=== PATIENT | female | born 1960 | race Caucasian/White ===

== ENCOUNTER 2020-01-24 15:05 | Outpatient (CLI) | payer BC, SELFPAY ==
--- NOTE | ~2020-01-24 | CT_ITS ---
EXAMINATION: CT chest wo con DATE: 01/24/2020 15:41 INDICATION: Abnormal weight loss, cough TECHNIQUE: Computed tomography (CT) of the chest was performed without intravenous contrast. The dose -length product (DLP) was 172.90 mGy-cm. Automated exposure control and iterative reconstruction tech [employer] were employed. COMPARISON: 01/20/2016 FINDINGS: There is moderate emphysema. The lungs are free of acute opacities. There is no pleural eff usion or pneumothorax. No pathologically enlarged thoracic lymph nodes are identified. The heart size is normal. There is calcified coronary artery atherosclerosis. There is mild thoracic spondylosis. IMPRESSION: 1. No CT correlate for the patient's symptoms. 2. Moderate emphysema. Reviewed, dictated and finalized at location A.
== END 2020-01-24 15:06 | disposition home or self-care (01) ==
PROVIDERS: PCP Family Medicine; Visit Provider Family Medicine
DX: R63.4 Abnormal weight loss (principal); R05 Cough; K21.0 Gastro-esophageal reflux disease with esophagitis; J43.9 Emphysema, unspecified
CPT/HCPCS: 71250

== ENCOUNTER 2020-02-21 10:36 | Outpatient (CLI) | payer BC, SELFPAY ==
--- NOTE | ~2020-02-21 | CT_ITS ---
EXAMINATION: CT abdomen pelvis wo con DATE: 02/21/2020 11:18 INDICATION: Abnormal weight loss with reflux. Esophagitis. TECHNIQUE: Computed tomography (CT) of the abdomen and pelvis was performed without intravenous contr ast. The dose-length product was 326.98 mGy-cm. Automated exposure control and iterative reconstructi on technique were employed. COMPARISON: None. FINDINGS: There is right middle lobe and lingular atelectasis. Heart size normal. No significant pleu ral or pericardial effusion. There is a focal 1.8 cm hypodensity of the left hepatic lobe adjacent to the falciform ligament. The spleen, pancreas, adrenal glands and kidneys are unremarkable. Gallbladder not identified, likely mariaa gically absent. Bowel pattern is nonobstructive. No evidence for acute appendicitis or diverticulitis . No significant vascular abnormality. No lymphadenopathy. No abnormal pelvic masses or fluid collect ions. Status post hysterectomy. No acute osseous abnormality. No free air or free fluid. IMPRESSION: 1. Hypodense lesion of the left hepatic lobe adjacent to the falciform ligament measuring 1.8 cm. Thi s likely represents benign focal fatty infiltration, although cannot exclude a solid mass. Recommend follow-up evaluation with contrast-enhanced CT or MRI. Reviewed, dictated and finalized at location A. IMPRESSION: 1. Hypodense lesion of the left hepatic lobe adjacent to the falciform ligament measuring 1.8 cm. This likely represents benign focal fatty infiltration, alth ough cannot exclude a solid mass. Recommend follow-up evaluation with contrast- enhanced CT or MRI.
== END 2020-02-21 10:37 | disposition home or self-care (01) ==
PROVIDERS: PCP Family Medicine; Visit Provider Family Medicine
DX: R63.4 Abnormal weight loss (principal); K21.0 Gastro-esophageal reflux disease with esophagitis; K76.9 Liver disease, unspecified
CPT/HCPCS: 74176

== ENCOUNTER 2020-02-27 08:21 | Outpatient (CLI) | payer BC, SELFPAY ==
--- NOTE | ~2020-02-27 | CT_ITS ---
EXAMINATION: CT abdomen w con DATE: 02/27/2020 09:17 INDICATION: Liver lesion TECHNIQUE: Computed tomography (CT) of the abdomen and pelvis was performed . with 100 mL Omnipaque-3 50 intravenous contrast. Automated exposure control and iterative reconstruction technique were emplo yed. The dose-length product was 264.57 mGy-cm. COMPARISON: 02/21/2020 FINDINGS: Minimal atelectasis at the right lung base. Heart size is normal. No pericardial or pleural effusion. Again seen is a lesion in segment IVb of the liver along side the falciform which measures 3.2 cm cr aniocaudally and 1.8 x 1.6 cm in maximal transaxial dimensions. The lesion which demonstrated near fl uid attenuation with Hounsfield units of 13 on the prior noncontrast study increases to 64 HU on the postcontrast study demonstrate a similar degree of enhancement as the surrounding renal parenchyma wh ich increases from 54 HU to 116 HU. The location, degree of low attenuation on noncontrast imaging an d similar degree of enhancement to the surrounding liver would also favor focal hepatic steatosis. Li julio cesar is otherwise normal. Gallbladder is not visualized and likely surgically absent. Spleen, pancreas , bilateral adrenal glands and kidneys are normal. Visualized portion of the bowels are unremarkable. No pathologically enlarged abdominal lymphadenopathy. There is calcified atherosclerosis of the aort a and many of the other arteries. Mild lumbar spondylosis. IMPRESSION: 1. 3.2 x 1.8 x 1.6 cm hypodense lesion in segment IVb of the liver with location and imaging pattern most consistent with focal hepatic steatosis. Reviewed, dictated and finalized at location A. IMPRESSION: 1. 3.2 x 1.8 x 1.6 cm hypodense lesion in segment IVb of the liver with locatio n and imaging pattern most consistent with focal hepatic steatosis.
[2020-02-27 09:15] LABS: Estimated Glomerular Filt Rate > 60
== END 2020-02-27 08:22 | disposition home or self-care (01) ==
LOC: ANHIMG 08:31
PROVIDERS: PCP Family Medicine; Visit Provider Family Medicine
DX: K76.9 Liver disease, unspecified (principal)
CPT/HCPCS: 36415; 74160; Q9967

== ENCOUNTER 2020-04-15 20:16 | Emergency (ER) | payer BC, SELFPAY ==
[2020-04-15 20:21] VITALS: BP 93/60; PULSE 125; RESP 16; TEMP 35.9; O2SAT 100
[2020-04-15 20:32] LABS: Basophils Percent Auto 0.6 % (0.2-1.2); Hematocrit 41.6 % (37.0-47.0); Hemoglobin 13.6 g/dL (12.0-15.0); Immature Granulocyte Absolute 0.03 K/mm3 (0.00-0.031); Immature Granulocyte Percent A 0.6 % (0-0.5); Lymphocytes Absolute Auto 0.84 K/mm3 (0.9-3.2); Lymphocytes Percent Auto 17.5 % (18.3-44.2); Mean Corpuscular HGB Conc 32.7 g/dl (32-36); Mean Corpuscular Hemoglobin 35.1 pg (26-34); Mean Corpuscular Volume 107.2 fl (80-100); Mean Platelet Volume 9.3 fl (7.4-10.4); Monocytes Absolute Auto 0.6 K/mm3 (0.1-0.6); Monocytes Percent Auto 12.9 % (2.6-8.5); Neutrophils Absolute Auto 3.3 K/mm3 (1.3-6.7); Neutrophils Percent Auto 68.4 % (45.5-73.1); Platelet Count Result 290 k/mm3 (150-375); Red Blood Count 3.88 M/mm3 (4.2-5.4); Red Cell Distribution Width 13.6 % (11.5-14.5); White Blood Count 4.8 K/mm3 (4.5-10.0)
[2020-04-15 20:51] VITALS: BP 122/71; PULSE 85; RESP 16; TEMP 36.9; O2SAT 99
[2020-04-15 20:51] LABS: Albumin Level 4.6 g/dL (3.5-5.1); Alkaline Phosphatase 139 U/L (38-126); Aspartate Amino Transferase 19 U/L (14-36); Bilirubin,Total 0.4 mg/dL (0.2-1.3); Blood Urea Nitrogen 2 mg/dL (7-17); Calcium 9.3 mg/dL (8.4-10.2); Carbon Dioxide 21 mmol/L (22-30); Chloride 94 mmol/L (98-107); Estimated Glomerular Filt Rate > 60; Glucose 149 mg/dL (65-105); Lipase 116 U/L (23-300); Potassium 3.3 mmol/L (3.4-5.0); Sodium 130 mmol/L (137-145)
[2020-04-15 20:57] LABS: Alanine Aminotransferase 17 U/L (4-35)
--- NOTE | 2020-04-15 21:24 | ED.GENADULT ---
HPI - General Adult General Chief complaint: Nausea/Vomiting/Diarrhea <William Palencia PA-C - Last Filed: 04/15/20 22:47> Stated complaint: n/v/d <William Palencia PA-C - Last Filed: 04/15/20 22:47> Time Seen by Provider: 04/15/20 21:18 <William Palencia PA-C - Last Filed: 04/15/20 22:47> Source: patient <William Palencia PA-C - Last Filed: 04/15/20 22:47> Mode of arrival: ambulatory <SAMANTHA Da Silva Last Filed: 04/15/20 22:47> Limitations: no limitations <SAMANTHA Da Silva Last Filed: 04/15/20 22:47> History of Present Illness HPI narrative: Patient is a 59-year-old female who presents with several days duration of emesis and diarrhea patient notes some mild aching pain of the abdomen patient denies any fever chills rectal bleeding melena hematemesis. Patient believes that the nausea and diarrhea might have been attributed to dehydration and heat exposure given that it has been hot prior to the onset of her symptoms. Patient denies URI symptoms sick contacts or individuals with similar occurrence. Patient on arrival to emergency department is in the room in no distress patient has been taking her home medications as instructed. <William Palencia PA-C - Last Filed: 04/15/20 22:47> Related Data Allergies/adverse reactions: Allergies Allergy/AdvReac Type Severity Reaction Status Date / Time No Known Allergies Allergy Unverified 03/29/18 07:34 <William Palencia PA-C - Last Filed: 04/15/20 22:47> Review of Systems Review of Systems: All systems reviewed & are unremarkable except as noted in HPI and below <William Palencia PA-C - Last Filed: 04/15/20 22:47> FOR[facility]LY [facility], [facility] Past Medical History Medical History: Medical History (Updated 04/17/20 @ 00:00 by Background Antoni) CVA (cerebral vascular accident) Gastroesophageal reflux disease Hypertension <SAMANTHA Da Silva Last Filed: 04/15/20 22:47> Family History Family History: Family History (Updated 06/05/17 @ 11:33 by DOCTOR UNKNOWN) Other Cerebrovascular accident Family history of arthritis Family history of malignant neoplasm Hypertension <William Palencia PA-C - Last Filed: 04/15/20 22:47> Social History Social History: Social History (Updated 04/15/20 @ 21:26 by William Palencia PA-C) Smoking status: Current every day smoker Alcohol intake: current Gender identity (if verbalized by the patient): Female <William Palencia PA-C - Last Filed: 04/15/20 22:47> Exam Narrative: Exam Narrative: GENERAL: Well-appearing, well-nourished, and in no acute distress. HEAD: Normocephalic, atraumatic. EYES: PERRLA and EOMI. ENT: Nares clear, no rhinorrhea or epistaxis. Mucous membranes moist. CHEST: Clear to auscultation. No respiratory distress. No wheezes rales or rhonchi HEART: Regular rate and rhythm. No murmur heard. Normal peripheral pulses. ABDOMEN: Soft, mild tenderness of the abdomen, nondistended EXTREMITIES: Normal range of motion. No edema. SKIN: Warm, dry, no rash. NEURO: No focal deficits. Alert and oriented x3. Cranial nerves II through XII grossly intact PSYCH: Normal mood and affect. <William Palencia PA-C - Last Filed: 04/15/20 22:47> Course Course Emergency Course: Patient in the room at this time resting comfortably tolerating p.o. intake felt appropriate for outpatient reevaluation advised to follow-up with primary care and gastroenterology <William Palencia PA-C - Last Filed: 04/15/20 22:47> Vital Signs Vital signs: Vital Signs Temperature 35.9 C L 04/15/20 20:21 Pulse Rate 125 H 04/15/20 20:21 Respiratory Rate 16 04/15/20 20:21 Blood Pressure 93/60 L 04/15/20 20:21 Pulse Oximetry 100 04/15/20 20:21 Temperature 36.8 C 04/16/20 00:04 Pulse Rate 84 04/16/20 00:04 Respiratory Rate 19 04/16/20 00:04 Blood Pressure 122/80 04/16/20 00:04 Pulse Oximetry 100 04/16/20 00:04 <William Pollock
[2020-04-15] MEDS: LACTATED RINGERS 1,000 ML 999 ML IV CONT ×2 (21:37→22:38)
[2020-04-15] MEDS: ONDANSETRON INJ 4 MG/2 ML VIAL IV PUSH (21:37)
[2020-04-15] MEDS: FAMOTIDINE 20 MG/2 ML VIAL IV PUSH (21:37)
[2020-04-15 22:12] VITALS: BP 113/64; BP 114/62; PULSE 102; PULSE 105
[2020-04-15 22:13] VITALS: BP 114/62; BP 97/62; PULSE 102; PULSE 109
[2020-04-15] MEDS: METOCLOPRAMIDE HCL INJ 10 MG/2 ML VIAL IV PUSH (22:23)
[2020-04-15 22:28] LABS: Add Urine Microscopic? NO; Appearance Urine Clear (Clear); Bilirubin Urine Negative (Negative); Blood Urine Negative (Negative); Color Urine Colorless (Yellow); Glucose Urine UA Negative (Negative); Ketones Urine Negative (Negative); Leukocyte Esterase Ur Negative LEU/UL (Negative); Nitrate Urine Negative (Negative); Protein Urine Negative (Negative); RBC Urine 0-2 /hpf (0-2); Squamous Epithelial Cell Urine Few /hpf (Few); Urobilinogen Urine Negative mg/dL (<2.0); WBC Urine 0-3 /hpf
[2020-04-15 22:36] LABS: Specific Grav Ur 1.003 (1.001-1.035)
[2020-04-16 00:04] VITALS: BP 122/80; PULSE 84; RESP 19; TEMP 36.8; O2SAT 100
== END 2020-04-16 00:05 | disposition home or self-care (01) ==
PROVIDERS: Emergency Provider Emergency Medicine; PCP Family Medicine
DX: R11.2 Nausea with vomiting, unspecified (principal); Z86.73 Personal history of transient ischemic attack (TIA), and cerebral infarction without residual deficits; K21.9 Gastro-esophageal reflux disease without esophagitis; I10 Essential (primary) hypertension; F17.200 Nicotine dependence, unspecified, uncomplicated
CPT/HCPCS: 36415; 80053; 81003; 83690; 85025; 96361; 96374; 96375; 99284; J1200; J2405; J2765; J7120

== ENCOUNTER 2020-08-10 08:09 | Outpatient (CLI) | payer BC, SELFPAY ==
--- NOTE | ~2020-08-10 | US_ITS ---
EXAMINATION: US arterial ankle brachial ind DATE: 08/10/2020 09:00 INDICATION: Bilateral lower limb pain TECHNIQUE: Segmental pressures and plethysmographic and Doppler waveforms of the brachial and lower e xtremity arteries were obtained. COMPARISON: None. FINDINGS: Right and left brachial artery pressures of 138 mm Hg and 127 mm Hg, respectively, are concordant (no rmal difference <= 30 mmHg). The right ankle-brachial index (CHANTEL) is 1.01 (normal >= 0.9-1.0). The right great toe-brachial index (TBI) is 0.64 (normal >= 0.65). Arterial Doppler waveforms are biphasic with brisk systolic upstrokes at both the right posterior tibial and dorsalis pedis arteries. The left CHANTEL is 0.91. The left TBI is 0.37. Arterial Doppler waveforms are biphasic with brisk systol ic upstrokes at both the left posterior tibial and dorsalis pedis arteries. IMPRESSION: 1. Arterial occlusive disease to the left lower limb with borderline left CHANTEL and decreased left TBI. 2. No significant arterial occlusive disease to the right lower limb with normal right CHANTEL and TBI. Reviewed, dictated and finalized at location A. IMPRESSION: 1. Arterial occlusive disease to the left lower limb with borderline left CHANTEL a nd decreased left TBI. 2. No significant arterial occlusive disease to the right lower limb with tommy l right CHANTEL and TBI.
== END 2020-08-10 08:10 | disposition home or self-care (01) ==
PROVIDERS: PCP Family Medicine; Visit Provider Family Medicine
DX: I77.1 Stricture of artery (principal)
CPT/HCPCS: 93922

== ENCOUNTER 2020-08-18 09:02 | Outpatient (CLI) | payer BC, SELFPAY ==
--- NOTE | ~2020-08-18 | MR_ITS ---
EXAMINATION: MR brain/brain stem wo/w con DATE: 08/18/2020 10:19 INDICATION: Repeated falls. Altered mental status. TECHNIQUE: Magnetic resonance imaging (MRI) of the brain and brainstem was performed without intraven ous contrast. Sequences included sagittal and axial T1-weighted SE, axial diffusion-weighted FS SE, a xial T2*-weighted GRE, axial T2-weighted FLAIR, and axial T2-weighted FSE. Postcontrast axial and cor onal T1-weighted SE was obtained. Apparent diffusion coefficient (ADC) maps were created. COMPARISON: 10/04/2017 FINDINGS: Again seen is a small old lacunar infarct at the posterior limb of the left internal capsule. There a re no areas of restricted diffusion to suggest acute infarction. No intracranial hemorrhage or abnorm al intracranial mass lesion. There are no intraparenchymal signal abnormalities seen on the other pul se sequences. The ventricles are symmetric and normal in size. There are no abnormal extra-axial flui d collections. Flow voids are seen in the cerebral arteries on the T2-weighted sequences consistent w ith their expected patency. Changes of bilateral intraocular lens replacement. Mild mucoperiosteal th ickening at the bilateral ethmoid sinuses. Visualized orbits and soft tissues are unremarkable. There are no areas of abnormal enhancement on the post contrast images. IMPRESSION: 1. Unchanged small old lacunar infarct in the posterior limb of the left internal capsule. Reviewed, dictated and finalized at location B. IMPRESSION: 1. 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
[2020-08-18 09:55] LABS: Estimated Glomerular Filt Rate > 60
== END 2020-08-18 09:03 | disposition home or self-care (01) ==
PROVIDERS: PCP Family Medicine; Visit Provider Family Medicine
DX: R47.82 Fluency disorder in conditions classified elsewhere (principal); I63.81 Other cerebral infarction due to occlusion or stenosis of small artery; Z91.81 History of falling
CPT/HCPCS: 70553; A9577

== ENCOUNTER 2020-11-24 10:23 | Emergency (ER) | payer BC, SELFPAY ==
--- NOTE | ~2020-11-24 | XR_ITS ---
EXAMINATION: XR knee LT 3V DATE: 11/24/2020 11:00 INDICATION: Left knee pain. TECHNIQUE: 3 views of left knee were obtained. COMPARISON: Left knee radiographs 06/25/2018 FINDINGS: There is lateral subluxation of patella. No fracture. There is mild osteoarthritis of media l and lateral compartments and severe osteoarthritis of patellofemoral compartment. There is a modera te-sized knee joint effusion. There is a 5 mm loose body in the knee joint posteriorly. IMPRESSION: 1. Severe left knee osteoarthritis. 2. Moderate-sized knee joint effusion with loose body. Reviewed, dictated and finalized at location B. UNT SERVICES COORDINATOR
[2020-11-24 10:43] VITALS: BP 114/76; PULSE 101; RESP 16; TEMP 36.9; O2SAT 96
[2020-11-24] MEDS: KETOROLAC (*BKC) 60 MG/2 ML VIAL IM (11:13)
[2020-11-24 11:57] VITALS: BP 103/63; PULSE 97; RESP 20; O2SAT 94
--- NOTE | 2020-11-24 12:48 | ED.LOWEXIN ---
HPI - Extremity Injury (Lower) General Chief Complaint: Extremity Injury, Lower Stated Complaint: unable to move left leg Time Seen by Provider: 11/24/20 10:35 History of Present Illness HPI Narrative: Patient is a 60-year-old female who presents ER with left knee pain. Patient states she woke up this morning and the knee was ailing her. Its in the medial aspect of the knee as well as posterior aspect. Is worse with flexion and extension. Has pain with bearing weight. No redness. No new swelling that she has noted. No known injury. No radiating pain down the leg. Related Data Allergies Allergy/AdvReac Type Severity Reaction Status Date / Time No Known Allergies Allergy Verified 11/24/20 10:46 Review of Systems Review of Systems: All systems reviewed & are unremarkable except as noted in HPI and below Constitutional: Constitutional: Denies chills and Denies fever(s) Musculoskeletal: Musculoskeletal: Reports arthralgias and Denies joint swelling Neurologic: Denies focal weakness and Denies numbness PMFSH Past Medical History Medical History (Updated 11/24/20 @ 12:59 by Ray Mckenna MD) CVA (cerebral vascular accident) Gastroesophageal reflux disease Hypertension Family History Family History (Updated 06/05/17 @ 11:33 by DOCTOR UNKNOWN) Other Cerebrovascular accident Family history of arthritis Family history of malignant neoplasm Hypertension Social History Social History (Updated 04/15/20 @ 21:26 by William Palencia PA-C) Smoking status: Current every day smoker Alcohol intake: current Gender identity (if verbalized by the patient): Female Exam Narrative: Exam Narrative: GENERAL: Well-appearing, well-nourished, and in no acute distress. HEAD: Normocephalic, atraumatic. CHEST: Clear to auscultation. No respiratory distress. HEART: Regular rate and rhythm. Normal peripheral pulses (specifically dorsalis pedis and posterior tibial pulses in the left lower extremity). EXTREMITIES: Normal range of motion. No edema. Mild pain in the left knee with flexion extension, most pain is superior to the patella and over the medial aspect of the knee. No evidence of trauma. SKIN: Warm, dry, no rash. NEURO: Alert and oriented x3. PSYCH: Normal mood and affect. Course Course Emergency Course: Patient informed results. Pain improving with Toradol. Discharge home. Vital Signs Vital signs: Vital Signs Temperature 98.4 F 11/24/20 10:43 Pulse Rate 101 H 11/24/20 10:43 Respiratory Rate 16 11/24/20 10:43 Blood Pressure 114/76 11/24/20 10:43 Pulse Oximetry 96 11/24/20 10:43 Temperature 98.4 F 11/24/20 10:43 Pulse Rate 97 11/24/20 11:57 Respiratory Rate 20 11/24/20 11:57 Blood Pressure 103/63 11/24/20 11:57 Pulse Oximetry 94 11/24/20 11:57 MDM - Extremity Injury (Lower) Imaging Data Radiologist's impression: ITS Impressions Knee X-Ray 11/24/20 11:01 IMPRESSION: 1. Severe left knee osteoarthritis. 2. Moderate-sized knee joint effusion with loose body. Discharge Plan Discharge Clinical Impression: Arthritis of knee Patient Disposition: Home, Self-Care Condition: Stable Instructions: Arthritis (ED) Additional Instructions: You have arthritis in your knee that is likely flaring causing you pain. Take ibuprofen and Tylenol as needed for pain. Apply ice to help with your discomfort. Return the ER if you have chest pain or shortness of breath, if new numbness or tingling down your leg, you have a cold/right foot, you have other concerns. Prescriptions: No Action ondansetron 4 mg tablet,disintegrating 4 mg PO QID PRN (Reason: nausea and vomiting) Qty: 10 RF: 0 famotidine [Pepcid] 20 mg tablet 20 mg PO BID Qty: 14 RF: 0 Follow-up/Referrals: An,Lainey Loya MD [Primary Care Provider] - 1 Week
[2020-11-24 13:11] VITALS: BP 114/76; PULSE 97; RESP 22; O2SAT 94
== END 2020-11-24 13:12 | disposition home or self-care (01) ==
PROVIDERS: Emergency Provider Emergency Medicine; PCP Family Medicine
DX: M17.12 Unilateral primary osteoarthritis, left knee (principal); Z86.73 Personal history of transient ischemic attack (TIA), and cerebral infarction without residual deficits; K21.9 Gastro-esophageal reflux disease without esophagitis; I10 Essential (primary) hypertension; F17.200 Nicotine dependence, unspecified, uncomplicated
CPT/HCPCS: 73562; 96372; 99283; J1885